=== PATIENT | male | born 1985 | race African-American/Black ===

== ENCOUNTER 2022-11-02 04:24 | Emergency (ER) | payer MEDICAID ==
[~2022-11-02] VITALS: Ht 198.1 cm; Wt 110.9 kg
[2022-11-02] MEDS ORDERED: LIDO2SOL23 MT (06:53)
[2022-11-02] MEDS ORDERED: AZIT500T66 PO (06:53)
[2022-11-02] MEDS ORDERED: cefTRIAXone SOD 1,000 MG VL IM ONE (07:00)
[2022-11-02 07:15] VITALS: BP 140/100
== END 2022-11-02 07:20 | disposition home or self-care (01) ==
LOC: ER 04:24
DX: J03.90 Acute tonsillitis, unspecified (principal); Z79.2 Long term (current) use of antibiotics; Z79.899 Other long term (current) drug therapy
CPT/HCPCS: 96372; 99283; J0696